=== PATIENT | male | born 1950 ===

== ENCOUNTER 2017-07-05 11:09 | Emergency (ER) | payer MEDICARE, OTHER ==
[2017-07-05 11:15] VITALS: BP 121/78; PULSE 85; RESP 16; TEMP 97.3; O2SAT 99; BMI 20.5
[2017-07-05] MEDS ORDERED: Clindamycin 600 MG in Sodium Chloride 0.9% 100 ML IVPB STA (12:06)
[2017-07-05 12:28] LABS: BASO % 0.3 % (0.0-2.0); EOS # 0.1 K/uL (0.0-0.7); EOS % 0.6 % (0.0-4.0); HEMATOCRIT 44.6 % (35.0-51.0); LYMPH # 1.6 K/uL (1.0-4.3); MEAN CELL VOLUME 92.3 fl (80.0-94.0); MEAN CORPUSCULAR HEMOGLOBIN 31.4 pg (27.0-31.0); MONO # 0.9 K/uL (0.0-0.8); MONO % 7.6 % (0.0-10.0); NEUT # 9.4 K/uL (1.8-7.0); NEUT % 78.5 % (50.0-75.0); RED CELL DISTRIBUTION WIDTH 13.8 % (11.5-14.5); WHITE BLOOD COUNT 11.9 K/uL (4.8-10.8)
[2017-07-05 12:47] LABS: ALB/GLOB RATIO 1.5 (1.0-2.1); ALKALINE PHOSPHATASE 77 U/L (38-126); ALT/SGPT 39 U/L (21-72); AST/SGOT 41 U/L (17-59); BILIRUBIN,TOTAL 0.6 mg/dl (0.2-1.3); BLOOD UREA NITROGEN 15 mg/dl (9-20); CARBON DIOXIDE 25 mmol/L (22-30); CHLORIDE 107 mmol/L (98-107); GFR AFRICAN-AMERICAN > 60; GLUCOSE,RANDOM 97 mg/dL (75-110); POTASSIUM 3.8 MMOL/L (3.6-5.0); SODIUM 142 mmol/l (132-148); TOTAL PROTEIN 6.6 G/DL (6.3-8.2)
--- NOTE | 2017-07-05 13:43 | ED PDOC ---
HPI: Dental Pain/Injury Time Seen by Provider: 07/05/17 11:51 Chief Complaint (Nursing): Dental Pain Chief Complaint (Provider): dental pain History Per: Patient History/Exam Limitations: no limitations Additional Complaint(s): 67yo M in ER for eval of sever dental pain with swelling to gums and associated headache subjective fever chills and ear pain. admits to poor residential and working closely with dental clinic-but insurance has stopped paying for series of treatments . denies sore throat. admits to heavy smoking. Past Medical History Reviewed: Historical Data, Nursing Documentation, Vital Signs Vital Signs: Last Vital Signs Temp 97.3 F L 07/05/17 11:13 Pulse 85 07/05/17 11:13 Resp 16 07/05/17 11:13 BP 121/78 07/05/17 11:13 Pulse Ox 99 07/05/17 11:13 - Medical History PMH: Anxiety - Family History Family History: States: No Known Family Hx - Home Medications Home Medications: Ambulatory Orders Medication Instructions Recorded Clindamycin [Cleocin] 300 mg PO TID #30 cap 07/05/17 - Allergies Allergies/Adverse Reactions: Allergies Allergy/AdvReac Type Severity Reaction Status Date / Time No Known Allergies Allergy Verified 07/05/17 11:39 Review of Systems ROS Statement: Except As Marked, All Systems Reviewed And Found Negative Constitutional: Positive for: Fever, Chills ENT: Positive for: Mouth Pain Neurological: Positive for: Headache, Dizziness Physical Exam - Reviewed Nursing Documentation Reviewed: Yes Vital Signs Reviewed: Yes - Physical Exam Appears: Positive for: Non-toxic, No Acute Distress, Uncomfortable Head Exam: Positive for: ATRAUMATIC, NORMAL INSPECTION, NORMOCEPHALIC Skin: Positive for: Normal Color, Warm, DRY Eye Exam: Positive for: EOMI, Normal appearance, PERRL ENT: Positive for: Normal ENT Inspection, Other (mouth: dental: very popr dentiiton decay with gum swelling no draainge noted missing teeth noted cracked teeth noted. ) Cardiovascular/Chest: Positive for: Regular Rate, Rhythm Respiratory: Positive for: CNT, Normal Breath Sounds Back: Positive for: Normal Inspection Extremity: Positive for: Normal ROM Neurologic/Psych: Positive for: Alert, Oriented - Laboratory Results Result Diagrams: 07/05/17 12:15 07/05/17 12:15 - ECG O2 Sat by Pulse Oximetry: 99 - Progress ED Course And Treament: impression-gingivitis will get the following: Orders Category Date Time Status CMP [COMP METABOLIC PANEL] Stat Chem 07/05/17 12:15 Completed CBC (WITH DIFFERENTIAL) Stat MAHOGANY 07/05/17 12:15 Completed Clindamycin [Cleocin] Med 07/05/17 12:20 Discontinued 600 mg .ROUTE .STK-MED ONE Clindamycin [Cleocin] 600 mg Med 07/05/17 12:06 Discontinued Sodium Chloride 0.9% 100 ml IVPB STAT Medical Decision Making Medical Decision Making: labs are unremarkable. Pt complected ABX and will be d/c on clinmcin with f.u with dental clinic. 07/05/17 07/05/17 12:15 12:15 WBC 11.9 H RBC 4.83 Hgb 15.2 Hct 44.6 MCV 92.3 MCH 31.4 H MCHC 34.0 RDW 13.8 Plt Count 181 MPV 8.0 Neut % (Auto) 78.5 H Lymph % (Auto) 13.0 L [place] % (Auto) 7.6 Eos % (Auto) 0.6 Baso % (Auto) 0.3 Neut # 9.4 H Lymph # 1.6 [place] # 0.9 H Eos # 0.1 Baso # 0.0 Sodium 142 Potassium 3.8 Chloride 107 Carbon Dioxide 25 Anion Gap 14 BUN 15 Creatinine 0.8 Est GFR ( Amer) > 60 Est GFR (Non-Af Amer) > 60 Random Glucose 97 Calcium 9.0 Total Bilirubin 0.6 AST 41 ALT 39 Alkaline Phosphatase 77 Total Protein 6.6 Albumin 4.0 Globulin 2.6 Albumin/Globulin Ratio 1.5 Disposition - Clinical Impression Clinical Impression: Gingivitis, Dental caries - Patient ED Disposition Is Patient to be Admitted: No Counseled Patient/Family Regarding: Studies Performed, Diagnosis, Need For Followup, Rx Given - Disposition Disposition: Routine/Home Disposition Time: 13:55 Condition: STABLE Additional Instructions: you NEED to be seen at the dental clinic-[facility] Prescriptions: Clindamycin [Cleocin] 300 mg PO TID #30 cap Instructions: Dental Caries (ED), Dental Abscess (ED), Gingivostomatitis (ED) Print Language: [place]
== END 2017-07-05 14:23 | disposition home or self-care (01) ==
LOC: H.ER 11:09
DX: K02.9 Dental caries, unspecified (principal); K05.10 Chronic gingivitis, plaque induced; F41.9 Anxiety disorder, unspecified